=== PATIENT | female | born 2000 | race African-American/Black ===

== ENCOUNTER 2020-12-28 09:40 | Emergency (ER) | payer MEDICAID ==
[~2020-12-28] VITALS: Ht 170.2 cm; Wt 57.0 kg
[2020-12-28] MEDS ORDERED: ONDANSETRON HCL 4MG/2ML INJ IV STA ×2 (09:47→13:39)
[2020-12-28] MEDS ORDERED: SODIUM CHLORIDE 0.9% 1,000 ML IV ONE ×2 (10:00→13:45)
[2020-12-28 10:55] LABS: BASOPHILS % 0.9 % (0.0-2.0); EOSINOPHILS % 0.1 % (0.0-5.0); HEMATOCRIT. 47.3 % (36.0-48.0); HEMOGLOBIN. 15.6 g/dL (12.0-16.0); LYMPHOCYTES % 23.4 % (20.0-50.0); MEAN CORPUSCULAR VOLUME 85.1 fL (81.0-99.0); MEAN PLATELET VOLUME 8.4 fl (7.4-10.4); NEUTROPHILS % 68.6 % (40.0-76.0); PLATELET 277 x1000/uL (130-400); RED BLOOD CELL COUNT 5.56 mill/uL (4.2-5.4)
[2020-12-28 11:01] LABS: CHLORIDE 101 mEq/L (98-107)
[2020-12-28 11:05] LABS: INR 1.1; PROTHROMBIN TIME 11.5 sec (9.6-11.0)
[2020-12-28 11:08] LABS: CLARITY URINE CLEAR (CLEAR); COLOR URINE DARK YELLOW (YELLOW); KETONES URINE 3+ (NEGATIVE); LEUKOCYTE ESTERASE URINE NEGATIVE (NEGATIVE); NITRITE URINE NEGATIVE (NEGATIVE); OCCULT BLOOD URINE 2+ (NEGATIVE); PROTEIN URINE 1+ (NEGATIVE); SPECIFIC GRAVITY URINE 1.036 (1.005-1.030)
[2020-12-28 11:08] LABS: HCG SCREEN NEGATIVE
[2020-12-28] MEDS ORDERED: KETOROLAC 30MG/ML VIAL IV ONE (11:30)
[2020-12-28 11:31] LABS: *AMPHETAMINES SCREEN URINE NEGATIVE (NEGATIVE); *BARBITURATES SCREEN URINE NEGATIVE (NEGATIVE); *BENZODIAZEPINES SCREEN URINE NEGATIVE (NEGATIVE); *COCAINE SCREEN URINE NEGATIVE (NEGATIVE); METHADONE URINE SCREEN NEGATIVE (NEGATIVE); OPIATES URINE SCREEN NEGATIVE (NEGATIVE)
[2020-12-28 11:32] LABS: PHENCYCLIDINE URINE SCREEN NEGATIVE (NEGATIVE)
[2020-12-28 11:35] LABS: CANNABINOID URINE SCREEN PRESUMTIVE POSITIVE (NEGATIVE)
[2020-12-28] MEDS ORDERED: MORPHINE SULFATE 4 MG/ML CPJ (NOT FOR IM USE) IV STA (13:39)
[2020-12-28] MEDS ORDERED: MORPHINE SULFATE 2 MG/ML CPJ (NOT FOR IM USE) IV STA (13:53)
[2020-12-28] MEDS ORDERED: IMOD MT (14:08)
[2020-12-28] MEDS ORDERED: ONDA4TAB5 MT (14:08)
[2020-12-28] MEDS ORDERED: NITR-87 MT (14:08)
[2020-12-28] MEDS ORDERED: IBUP-2029 MT (14:08)
[2020-12-28] MEDS ORDERED: MORPHINE SULFATE 2 MG/ML CPJ (NOT FOR IM USE) IV SCH (14:15)
[2020-12-28 17:08] VITALS: BP 125/77
== END 2020-12-28 17:10 | disposition home or self-care (01) ==
LOC: ER 09:40
DX: R10.33 Periumbilical pain (principal); R11.2 Nausea with vomiting, unspecified; R19.7 Diarrhea, unspecified; R30.0 Dysuria; F12.10 Cannabis abuse, uncomplicated; Z79.899 Other long term (current) drug therapy
CPT/HCPCS: 36415; 74176; 76830; 76856; 80053; 80305; 81003; 81025; 83690; 84703; 85025; 85610; 87077; 87086; 96361; 96374; 96375; 99285; J1885; J2270; J2405; J7030